=== PATIENT | female | born 1980 | race African-American/Black ===

== ENCOUNTER 2022-09-13 18:37 | Emergency (ER) | payer OTHER, SELFPAY ==
[2022-09-13 18:46] VITALS: BP 105/40; PULSE 72; RESP 18; TEMP 36.9; O2SAT 100; BMI 33.1
--- NOTE | 2022-09-13 18:46 | ED.RECABL ---
HPI - Recheck/Abnormal Lab/Rx General Chief Complaint: Recheck/Abnormal Lab/Rx Stated Complaint: abnormal labs sent by Time Seen by Provider: 09/13/22 19:39 Source: patient Mode of arrival: ambulatory History of Present Illness HPI narrative: 42-year-old female who is protein S deficient and on Coumadin for number of years now reports that she has had 2 menses this month and was informed by her clinic that her hemoglobin was low. Patient states she has been experiencing significant fatigue, lightheadedness, headaches for proximally 1 week. Related Data Allergies Allergy/AdvReac Type Severity Reaction Status Date / Time tramadol Allergy Mild Rash Verified 09/13/22 18:49 Review of Systems Review of Systems: Pertinent positives and negatives as stated in HPI PMFSH Past Medical History Source: nursing notes reviewed Social History Social History Alcohol intake: never Smoked in Last 30 Days: No Use of substances other than those prescribed or required for medical reasons: No Advance Directives: No Advance Directives Information Provided: No Patient : No Physical Exam Vital Signs: Vital Signs: Last Vital Signs Temp 97.8 F 09/13/22 23:33 Pulse 70 09/13/22 23:33 Resp 18 09/13/22 23:33 BP 90/46 L 09/13/22 23:33 Pulse Ox 98 09/13/22 23:33 O2 Del Method Room Air 09/13/22 23:33 BMI result Body Mass Index 33.1 VITAL SIGNS: Reviewed. GENERAL: Well developed, well nourished, in no acute distress. HEAD: Normocephalic/atraumatic EYES: PERRLA, EOMI EARS: Ext canals without abnormality NOSE: Nares patent bilateral OROPHARYNX: no oral lesions noted, posterior pharynx clear, pale mucous membrane NECK: Supple, no adenopathy LUNGS: Normal breath sounds. No adventitious sounds or accessory muscle use. SpO2<100> CARDIOVASCULAR: Regular rate and rhythm without noted murmurs ABDOMEN: Soft, non-tender, non-distended with bowel sounds. MUSCULOSKELETAL: No tenderness, deformities, or effusions noted on gross inspection. EXTREMITIES: No cyanosis, clubbing or edema. SKIN: Inspection of the skin reveals no rashes, patient is pale NEUROLOGIC: Alert and oriented x 4. Strength and sensation to light touch were grossly intact x 4. Course Course Course Narrative: This is a rapid medical exam. Deferred additional HPI, ROS, PE to primary provider. 42 yo male with protein S deficiency on coumadin, anemia here with complaints of abnormal labs. C/o headaches, dizziness, blurry vision x 1 week. Had menses twice this month (currently having vaginal bleeding-used 5 pads today). Called by PCP and told her hgb is low. Will obtain labs. VSS Reevaluation(s) Reevaluation #1: Was signed out to be discharged after having a unit of RBCs blood transfusion, patient finished that transfusion with no complication or side effect, patient feels okay, patient stated the headache has improved. Will discharge to follow-up with her PCP as discussed with the patient. Time: 23:48 Medications Administered Discontinued Medications Generic Name Dose Route Start Last Admin Trade Name Freq PRN Reason Stop Dose Admin Sodium Chloride 1,000 mls @ 999 mls/hr 09/13/22 19:45 09/13/22 20:51 Ns IV 09/13/22 20:45 Infused .Q1H1M VALERIE Infusion Warfarin Sodium 15 mg 09/13/22 21:45 09/13/22 22:56 Warfarin Sodium 5 Mg Tablet PO 09/13/22 21:46 15 mg ONCE ONE Administration Medical Decision Making Medical Decision Making MDM Narrative: 42-year-old female with history and clinical presentation consistent with AUB, on a chronic anticoagulation, noted to be anemic and consented and will receive 1 unit of RBCs. She is otherwise hemodynamically stable. Signed out to Dr Barakat Differential Diagnosis Please see the discussion above Lab Data Please see the discussion above 09/13/22 18:59 09/13/22 18:59 Labs: Lab Results 09/13/22 09/13/22 09/13/22 Range/Units 18:59 18:59 18:59 WBC 6.4 (4.8-10.8) X10*3/uL RBC 3.81 L (4.20-5.50) X10*6/uL Hgb 7.4 L (12.0-16.0) g/dl Hct 26.0 L (37.0-47.0) % MCV 68.2 L (80.0-98.0) fL MCH 19.4 L (27.0-33.0) pg MCHC 28.5 L (31.0-35.0) g/dl RDW 19.7 H (11.0-16.0) % Plt Count 306 (160-400) X10*3/uL MPV 10.7 (9.4-12.3) fL Immature Gran % (Auto) 0.2 (0.0-0.4) % Neut % (Auto) 60.0 (45-73) % Lymph % (Auto) 31.7 (20-40) % Independence % (Auto) 6.2 (2-11) % Eos % (Auto) 1.4 (0-4) % Baso % (Auto) 0.5 (0-2) % Lymph # (Auto) 2.0 (1.2-4.9) X10*3/uL Independence # (Auto) 0.4 (0.1-1.2) X10*3/uL Eos # (Auto) 0.1 (0.0-0.4) X10*3/uL Baso # (Auto) 0.0 (0.0-0.2) X10*3/uL Abs Immat Gran (auto) 0.01 (0.00-0.03) X10*3/uL Absolute Neuts (auto) 3.9 (2.0-8.3) x10*3/uL Absolute Nucleated RBC 0.000 (0.0-0.012) X10*3/uL Nucleated RBC % (auto) 0.0 (0.0-0.2) /100WBC PT 22.5 H (10.0-13.1) SEC INR 1.9 H (0.9-1.1) Sodium 140 (135-145) mmol/L Potassium 4.1 (3.3-5.1) mmol/L Chloride 111 H (96-108) mmol/L Carbon Dioxide 22 (22-29) mmol/L Anion Gap 11 L (12-20) BUN 12 (9-16) mg/dL Creatinine 0.67 (0.5-1.4) mg/dL Estim Creat Clear Calc 124.4 Estimated GFR > 60 Random Glucose 88 (60-115) mg/dL Calcium 8.8 (8.4-10.2) mg/dL Total Bilirubin 0.3 (0.0-1.0) mg/dL Direct Bilirubin 0.1 (0.0-0.5) mg/dL AST 24 (5-31) U/L ALT 14 (0-31) U/L Alkaline Phosphatase 70 (39-117) U/L Total Protein 6.9 (6.5-8.0) g/dL Albumin 4.1 (3.5-5.0) g/dL Blood Type Antibody Screen Crossmatch 09/13/22 Range/Units 20:06 WBC (4.8-10.8) X10*3/uL RBC (4.20-5.50) X10*6/uL Hgb (12.0-16.0) g/dl Hct (37.0-47.0) % MCV (80.0-98.0) fL MCH (27.0-33.0) pg MCHC (31.0-35.0) g/dl RDW (11.0-16.0) % Plt Count (160-400) X10*3/uL MPV (9.4-12.3) fL Immature Gran % (Auto) (0.0-0.4) % Neut % (Auto) (45-73) % Lymph % (Auto) (20-40) % Independence % (Auto) (2-11) % Eos % (Auto) (0-4) % Baso % (Auto) (0-2) % Lymph # (Auto) (1.2-4.9) X10*3/uL Independence # (Auto) (0.1-1.2) X10*3/uL Eos # (Auto) (0.0-0.4) X10*3/uL Baso # (Auto) (0.0-0.2) X10*3/uL Abs Immat Gran (auto) (0.00-0.03) X10*3/uL Absolute Neuts (auto) (2.0-8.3) x10*3/uL Absolute Nucleated RBC (0.0-0.012) X10*3/uL Nucleated RBC % (auto) (0.0-0.2) /100WBC PT (10.0-13.1) SEC INR (0.9-1.1) Sodium (135-145) mmol/L Potassium (3.3-5.1) mmol/L Chloride (96-108) mmol/L Carbon Dioxide (22-29) mmol/L Anion Gap (12-20) BUN (9-16) mg/dL Creatinine (0.5-1.4) mg/dL Estim Creat Clear Calc Estimated GFR Random Glucose (60-115) mg/dL Calcium (8.4-10.2) mg/dL Total Bilirubin (0.0-1.0) mg/dL Direct Bilirubin (0.0-0.5) mg/dL AST (5-31) U/L ALT (0-31) U/L Alkaline Phosphatase (39-117) U/L Total Protein (6.5-8.0) g/dL Albumin (3.5-5.0) g/dL Blood Type O Positive Antibody Screen NEGATIVE Crossmatch See Detail Discharge Plan Discharge Clinical Impression: Warfarin-induced coagulopathy, Abnormal uterine bleeding (AUB), Symptomatic anemia Patient Disposition: Home, Self-Care Instructions: Dysfunctional Uterine Bleeding (ED), Anemia (ED), Blood Thinners (ED) Additional Instructions: Resume all home medications as prescribed. Consider [id number] vitamins as this has iron in it. Please call the office of your primary care provider in the morning to set up an appointment for re-evaluation and immediate referral to gynecology. I have provided you with a referral to our global sourcing manager if you choose. Return to the ER for any worsening symptoms. Referrals: Ashwin Stanton MD [Physician] - (42F AUB on coumadin for Protein S deficiency. Rec'd 1U PRBC)
--- NOTE | 2022-09-13 19:03 | MHC.EDTECH ---
PATIENT WAS UNABLE TO GIVE URINE SAMPLE .
[2022-09-13 19:09] LABS: Hemoglobin 7.4 g/dl (12.0-16.0); Mean Corpuscular Hemoglobin 19.4 pg (27.0-33.0); SCAN SMEAR FLAG 1
[2022-09-13 19:11] LABS: Basophils Percent Auto 0.5 % (0-2); Eosinophils Absolute Auto 0.1 X10*3/uL (0.0-0.4); Eosinophils Percent Auto 1.4 % (0-4); Imm Gran Abs Auto 0.01 X10*3/uL (0.00-0.03); Imm Gran Pct Auto 0.2 % (0.0-0.4); Lymphocytes Percent Auto 31.7 % (20-40); Mean Corpuscular HGB Conc 28.5 g/dl (31.0-35.0); Mean Corpuscular Volume 68.2 fL (80.0-98.0); Mean Platelet Volume 10.7 fL (9.4-12.3); Monocytes Absolute Auto 0.4 X10*3/uL (0.1-1.2); Monocytes Percent Auto 6.2 % (2-11); Neutrophils Absolute Auto 3.9 x10*3/uL (2.0-8.3); Platelet Count 306 X10*3/uL (160-400); Red Blood Count 3.81 X10*6/uL (4.20-5.50); Red Cell Distribution Width 19.7 % (11.0-16.0); White Blood Count 6.4 X10*3/uL (4.8-10.8)
[2022-09-13 19:13] LABS: INTERNATIONAL NORM RATIO 1.9 (0.9-1.1); PLT ABN DIST 1; Prothrombin Time 22.5 SEC (10.0-13.1)
[2022-09-13 19:14] LABS: MANUAL DIFF FLAG NO
[2022-09-13 19:21] LABS: Alanine Aminotransferase 14 U/L (0-31); Albumin Level 4.1 g/dL (3.5-5.0); Alkaline Phosphatase 70 U/L (39-117); Anion Gap 11 (12-20); Aspartate Amino Transferase 24 U/L (5-31); Bilirubin Direct 0.1 mg/dL (0.0-0.5); Bilirubin Total 0.3 mg/dL (0.0-1.0); Blood Urea Nitrogen 12 mg/dL (9-16); Calcium 8.8 mg/dL (8.4-10.2); Carbon Dioxide 22 mmol/L (22-29); Chloride 111 mmol/L (96-108); Creatinine Clr Calc Pharmacy 124.4; Estimated Glomerular Filt Rate > 60; Glucose Random 88 mg/dL (60-115); Potassium 4.1 mmol/L (3.3-5.1); Sodium 140 mmol/L (135-145); Total Protein 6.9 g/dL (6.5-8.0)
[2022-09-13] MEDS: 0.9 % Sodium Chloride 1,000 ML 999 ML IV (19:50)
[2022-09-13 19:55] VITALS: BP 105/39; PULSE 61; RESP 18; O2SAT 97
[2022-09-13 21:19] VITALS: BP 107/56; PULSE 66; RESP 18; TEMP 36.7
[2022-09-13 21:37] VITALS: BP 112/59; PULSE 63; RESP 18; TEMP 36.9
--- NOTE | 2022-09-13 21:39 | PC.NURSE ---
Blood transfusion started, VSS, Pt denies any SOB, CP or adverse reaction. Will CTM.
[2022-09-13] MEDS: Warfarin Sodium 5 MG TABLET 15 MG PO (22:56)
[2022-09-13 23:33] VITALS: BP 90/46; PULSE 70; RESP 18; TEMP 36.6; O2SAT 98
--- NOTE | 2022-09-13 23:35 | MHC.EDTECH ---
THIS PCT ASSUMED CARE OF PATIENT AT 2300 ,VITALS SIGN TAKEN ,PT IS UNABLE TO GIVE URINE SAMPLE AT THIS TIME .
[2022-09-13 23:53] VITALS: BP 101/49; PULSE 67; RESP 18; TEMP 36.7
== END 2022-09-14 00:02 | disposition home or self-care (01) ==
PROVIDERS: Nurse Practitioner Family; Emergency Provider Emergency Medicine
DX: N93.9 Abnormal uterine and vaginal bleeding, unspecified (principal); R79.1 Abnormal coagulation profile; D64.89 Other specified anemias
CPT/HCPCS: 36415; 36430; 80048; 80076; 85025; 85610; 86850; 86900; 86901; 86923; 96360; 99284; 99285; P9016